=== PATIENT | male | born 1955 | race Caucasian/White ===

== ENCOUNTER → 2017-06-15 | Outpatient (CLI) | payer BC | LOC: FIMAGING 08:03 | PROVIDERS: ATTEND Family Medicine | DX: M51.36 Other intervertebral disc degeneration, lumbar region (principal); M43.17 Spondylolisthesis, lumbosacral region ==

== ENCOUNTER → 2017-07-05 | Outpatient (CLI) | payer BC, OTHER | LOC: FIMAGING 18:28 | DX: M50.31 Other cervical disc degeneration, high cervical region (principal); M48.02 Spinal stenosis, cervical region; G95.20 Unspecified cord compression ==